=== PATIENT | female | born 1975 | race Caucasian/White ===

== ENCOUNTER 2021-10-07 13:14 | Outpatient (CLI) | payer OTHER, SELFPAY ==
--- NOTE | 2021-10-07 13:20 | CRLHL7_ITS ---
For Patients: As a result of the Century Cures Act, medical imaging exams and procedure reports are released immediately into your electronic medical record. You may view this report before your referring provider. If you have questions, please contact your health care provider. BILATERAL SCREENING MAMMOGRAM WITH COMPUTER-AIDED DETECTION AND TOMOSYNTHESIS TECHNIQUE: CC and MLO views were obtained. These mammographic images have been obtained using full-field digital technique. These mammographic images were interpreted with the benefit of computer-aided detection. Breast Tomosynthesis was used in this interpretation. COMPARISON FILM: 09/24/20, 09/11/19, 08/20/18 FINDINGS: There are scattered areas of fibroglandular density IMPRESSION: There is no radiographic evidence for malignancy. ASSESSMENT: BI-RADS Category 1: Negative RECOMMENDATION: Routine screening mammogram in 1 year. A lay language report of this examination will be provided to the patient. Austin Cabrera M.D. Diagnostic/Musculoskeletal Radiologist [email or web address] Transcribed: 10:48 p.m. PT/Dictated by: Austin Cabrera MD @ 10/10/2021 10:37:00 AM (Electronically Signed)
== END 2021-10-07 13:15 | disposition home or self-care (01) ==
LOC: MAMMO 13:14
PROVIDERS: Visit Provider Physician Assistant
DX: Z12.31 Encounter for screening mammogram for malignant neoplasm of breast (principal)
CPT/HCPCS: 77063; 77067

== ENCOUNTER 2022-01-02 07:41 | Day surgery (SDC) | payer OTHER, SELFPAY ==
--- NOTE | 2022-01-02 07:51 | SUR.PREOP ---
HOME COVID ANTIGEN TEST NEGATIVE
[2022-01-02 07:57] VITALS: BP 112/73; PULSE 82; RESP 16; TEMP 37; O2SAT 98
[2022-01-02 08:04] VITALS: BMI 25.2
[2022-01-02] MEDS: SCOPOLAMINE 1 MG/3 DAY PATCH 1 PATCH TRANSDERMA (08:11)
[2022-01-02] MEDS: SODIUM CHLORIDE 0.9 % (FLUSH) 10 ML SYRINGE IVF (08:25)
[2022-01-02] MEDS: LACTATED RINGERS 1000 ML 1,000 ML 100 ML IV (08:25)
--- NOTE | 2022-01-02 09:00 | CRLHL7_ITS ---
For Patients: As a result of the Century Cures Act, medical imaging exams and procedure reports are released immediately into your electronic medical record. You may view this report before your referring provider. If you have questions, please contact your health care provider. Indication: Right Lapidus Bunionectomy, Jair Osteotomy 2nd Metatarsal Technique: Two fluoroscopic images of the right foot. Fluoroscopic time 47.4 seconds. IMPRESSION: Fluoroscopic guidance for 1st tarsal metatarsal fusion and bunionectomy along with great toe proximal phalangeal osteotomy. Postop changes to 2nd metatarsal head. Dictated by Andrew Ling MD @ 01/02/2022 3:53:14 PM (Electronically Signed)
[2022-01-02] MEDS: CEFAZOLIN 1 GM inj IVP (09:45)
[2022-01-02] MEDS: BUPIVACAINE 0.5% 30 ML INJECTION (09:48)
[2022-01-02 13:04] VITALS: BP 99/62; PULSE 53; RESP 16; TEMP 36.3; O2SAT 100
--- NOTE | 2022-01-02 13:08 | W.ANESCHARGE ---
Anesthesia Charges Start Date/Time Anesthesia Start Date: 01/02/22 Anesthesia Start Time: 09:43 Stop Date/Time Anesthesia Stop Date: 01/02/22 Anesthesia Stop Time: 13:07 Summary Emergency: No
--- NOTE | 2022-01-02 13:19 | W.ANESCHARGE ---
Anesthesia Charges Start Date/Time Anesthesia Start Date: 01/02/22 Anesthesia Start Time: 09:43 Stop Date/Time Anesthesia Stop Date: 01/02/22 Anesthesia Stop Time: 13:07 Summary Emergency: No
[2022-01-02 13:53] VITALS: BP 114/50; PULSE 52; RESP 16; O2SAT 100
[2022-01-02] MEDS: OxyCODONE/APAP 5-325 TABLET PO (13:58)
[2022-01-02 14:23] VITALS: BP 103/67; PULSE 53; RESP 16; O2SAT 99
--- NOTE | 2022-01-02 16:53 | P.GSOP_ITS ---
Operative Note Date of procedure: 01/02/22 Type of Procedure: 1. Lapidus bunionectomy right 2. Ted phalangeal osteotomy right 3. Jair osteotomy 2nd metatarsal right Procedure Description: Preoperative diagnosis: Hallux valgus with bunion right, metatarsalgia 2nd right Postoperative diagnosis: Hallux valgus with bunion right, metatarsalgia 2nd right Procedure: Lapidus bunionectomy right, Ted phalangeal osteotomy right, Jair osteotomy 2nd metatarsal right After discussing the risks and benefits of the procedure, the patient signed informed consent.? The operative site was marked and the patient was brought to the operating room and placed on the operating table in supine position.? Care was taken to pad the patient's pressure points.?? The patient was then given sedation by anesthesia and I injected 30 mL of 0.5% Marcaine plain into the right foot.?? The operative site was then prepped and draped in the usual sterile fashion.? A time-out was then performed. The right foot was exsanguinated and the ankle tourniquet inflated to 250 mm Hg. Linear incisions made midline on the medial 1st metatarsal head. Incision was carried down through skin subcutaneous tissues. Blunt dissection was carried down to the joint capsule and a linear capsular incision was made. Capsular tissues reflected away from the 1st metatarsal head. A linear incisions made over the 2nd metatarsophalangeal joint extended proximally. Incision was carefully deepened into the 1st intermetatarsal space and a standard lateral release performed. The dorsal fibular sesamoidal ligaments the adductor tendon released. Linear incisions made over the dorsal medial aspect of the 1st metatarsal cuneiform joint. Incision was carried down through skin subcutaneous tissues. Neurovascular structures retracted medially and the extensor tendon retracted laterally. Transverse incision was made through the joint capsule. A joint distractor applied. The joint was distracted and the cartilaginous surface of the 1st metatarsal base and medial cuneiform were removed with a osteotome and curette. Using a sagittal saw additional bone was removed from the dorsal lateral 1st metatarsal base to help with her rotation in the frontal plane. Sagittal saw was then used to reciprocal plane the lateral aspect of the fusion site until correct fit was obtained with good [id number] apposition and excellent correction of the deformity. Wound was irrigated with normal sterile saline. Opposing joint fusion surfaces were fenestrated with the joint prep drill and an osteotome. Guide pin was placed the 1st metatarsal head and the LapiFuse jig applied. 1st metatarsal was corrected in all 3 planes. C-arm confirmed excellent position. Guide pin was placed from 1st metatarsal base across the medial cuneiform into the middle cuneiform. C-arm confirmed position. 4.0 cannulated screw was then inserted and excellent compression noted across the fusion site. Position we checked and found to be optimal. Dorsal medial plate was then applied and 3.0 mm locking screws were placed 2 proximal and 2 distal. First metatarsal was stable. Using a sagittal saw and rotary bur 1st metatarsal head was remodeled. Wound was thoroughly irrigated normal sterile saline. ? Hallux still angled at the IPJ. Ted osteotomy was then performed. A linear incision was made over the midshaft of the proximal phalanx medially. Blunt dissection down to periosteum. Periosteum reflected dorsally and plantarly protecting the extensor and flexor tendons. A sagittal saw was used to resect a medially based wedge of bone from the phalanx preserving the lateral bony cortex. It was feathered until the osteotomy was easily closed down. An 8 mm staple was then placed medially across the osteotomy. X-rays confirmed excellent position. The previous incision over the 2nd MPJ was deepened down to the extensor tendon. Extensor tendon was reflected laterally. A linear capsular incision was made and the 2nd metatarsal head exposed. Sagittal saw was used to create a Jair osteotomy and the capital fragment transposed proximal 2 mm. It was then fixated with a 12 mm twist off screw x1. Wound was thoroughly irrigated normal sterile saline. The joint capsule was closed with 4-0 Vicryl. Subcutaneous tissues reapproximated with 4-0 Monocryl and skin closed with 4-0 Prolene. Tourniquet was released at this point and all bleeding vessels cauterized. The distal Ted incision was closed with 4-0 Monocryl and 4-0 Prolene. The proximal wound the deep fascia was closed with 4-0 Vicryl. The subcutaneous tissues reapproximated 4-0 Monocryl the skin closed with 4-0 Prolene. At the incision over the 1st metatarsal head the redundant capsular tissue was excised and the joint capsule repaired with 3-0 Vicryl. The hallux was maintained in rectus position. Subcutaneous tissues reapproximated 4-0 Monocryl and skin closed with 4-0 Prolene. Sterile dressings were then applied. Well-padded CAM boot placed. The patient was then woken and transported to the recovery area in stable condition. ? The patient tolerated the procedure well. Written and verbal postop instructions given. She will be discharged per Anesthesia. She is given oxycodone for pain. She is given Zofran for nausea. She will utilize crutches or knee walker. She will follow-up in 2 days. Aspirin therapy starting tomorrow. Findings: Complications: None apparent Implants: Treece LapiFuse 1st metatarsal cuneiform joint plate 0? x1, 3.0 cortical locking screw times 4, 4.0 cannulated screw x1. Twist off screw x1. Anesthesia: MAC and local Surgeon: Monroe Espinosa DPM Estimated blood loss (mL): 10 Condition: stable Disposition: same day
== END 2022-01-02 14:45 | disposition home or self-care (01) ==
PROVIDERS: PCP Physician Assistant; Visit Provider Podiatrist
PROC: (CPT 28292; principal; 2022-01-02 09:00)
PROC: (CPT 28297; 2022-01-02 09:00)
DX: M20.11 Hallux valgus (acquired), right foot (principal); M21.611 Bunion of right foot; M77.41 Metatarsalgia, right foot
CPT/HCPCS: 28297; 28310; 28308; 01462; 01480; 73620; 97116; 97161; A9270; C1713; J0690; J1100; J1885; J2250; J2405; J2704; J3010; J3490; J7120

== ENCOUNTER 2022-10-12 08:04 | Outpatient (CLI) | payer OTHER, SELFPAY | END 2022-10-12 08:05 | disposition home or self-care (01) | PROVIDERS: PCP Physician Assistant; Visit Provider Nurse Practitioner Family | DX: Z00.00 Encounter for general adult medical examination without abnormal findings (principal); R00.2 Palpitations; Z13.1 Encounter for screening for diabetes mellitus; Z13.0 Encounter for screening for diseases of the blood and blood-forming organs and certain disorders involving the immune mechanism; Z13.6 Encounter for screening for cardiovascular disorders | CPT/HCPCS: 80061; 82947; 84443; 85025 ==

== ENCOUNTER 2022-10-12 15:21 | Outpatient (CLI) | payer OTHER, SELFPAY ==
--- NOTE | 2022-10-12 15:40 | CRLHL7_ITS ---
For Patients: As a result of the Cures Act, medical imaging exams and procedure reports are released immediately into your electronic medical record. You may view this report before your referring provider. If you have questions, please contact your health care provider. BILATERAL SCREENING MAMMOGRAM WITH COMPUTER-AIDED DETECTION AND TOMOSYNTHESIS TECHNIQUE: CC and MLO views were obtained. These mammographic images have been obtained using full-field digital technique. These mammographic images were interpreted with the benefit of computer-aided detection. Breast Tomosynthesis was used in this interpretation. COMPARISON FILM: 10/07/21, 09/24/20, 09/11/19. FINDINGS: There are scattered areas of fibroglandular density IMPRESSION: There is no radiographic evidence for malignancy. ASSESSMENT: BI-RADS Category 2: Benign RECOMMENDATION: Routine screening mammogram in 1 year. A lay language report of this examination will be provided to the patient. Andrew Ling M.D. Diagnostic Radiologist [email or web address] / be/Dictated by: Andrew Ling MD @ 10/13/2022 9:30:00 AM (Electronically Signed)
== END 2022-10-12 15:22 | disposition home or self-care (01) ==
LOC: MAMMO 15:21
PROVIDERS: PCP Nurse Practitioner Family; Visit Provider Nurse Practitioner Family
DX: Z12.31 Encounter for screening mammogram for malignant neoplasm of breast (principal)
CPT/HCPCS: 77063; 77067

== ENCOUNTER 2023-02-18 13:27 | Emergency (ER) | payer OTHER, SELFPAY ==
[2023-02-18 13:33] VITALS: BP 125/79; PULSE 76; RESP 18; TEMP 36.7; O2SAT 100; BMI 22.0
--- NOTE | 2023-02-18 14:17 | ED.GENADULT ---
HPI - General Adult General Chief complaint: Laceration/Wound Stated complaint: Laceration L willis Time Seen by Provider: 02/18/23 13:42 History of Present Illness HPI narrative: Patient is a 47 year white female who is up-to-date on tetanus who presents with a injury to her left anterior willis she has an aero shaped flap about 2 cm x 4 cm long in the distal anterior willis good amount of bleeding notes stopped. She has reporting that she hit this on a wooden stool so there was no foreign material likely in the wound. She is able to walk without difficulty presents for evaluation for the laceration. Related Data Home Medications Medication Instructions Recorded Confirmed multivitamin 1 tab PO QDAY 12/14/21 10/12/22 Previous Rx's Medication Instructions Recorded azithromycin 250 mg tablet See Rx Instructions PO .COMPLEX #6 10/27/22 (Zithromax Z-Vargas) tabs lorazepam 1 mg tablet 1 mg PO TID PRN anxiety #60 tabs 01/16/23 cephalexin 500 mg capsule 500 mg PO QID #20 caps 02/18/23 Allergies Allergy/AdvReac Type Severity Reaction Status Date / Time acetaminophen Allergy Intermediate stomach Verified 02/18/23 13:37 [From Panlor burning (hydrocodone-acetamin)] hydrocodone Allergy Intermediate stomach Verified 02/18/23 13:37 [From Panlor burning (hydrocodone-acetamin)] anesthesia Allergy Intermediate vomits Uncoded 10/12/22 07:46 Estrogens AdvReac pulmonary Uncoded 10/17/22 13:51 embolism Review of Systems Status of ROS: Reports: 6 or more systems reviewed and unremarkable except as noted in History and below [facility] Medical History History of tachycardia ?Z87.898 - Personal history of other specified conditions (ICD-10) ASCUS of cervix with negative high risk HPV ?R87.610 - Atypical squamous cells of undetermined significance on cytologic smear of cervix (ASC-US) (ICD-10) Bilateral bunions ?M21.611 - Bunion of right foot (ICD-10) ?M21.612 - Bunion of left foot (ICD-10) Hx pulmonary embolism ?Z86.711 - Personal history of pulmonary embolism (ICD-10) Surgical History History of bunionectomy ?Z98.890 - Other specified postprocedural states (ICD-10) History of endometrial ablation ?Z98.890 - Other specified postprocedural states (ICD-10) History of laparoscopic cholecystectomy ?Z90.49 - Acquired absence of other specified parts of digestive tract (ICD-10) Family History Father Coronary artery disease Prostate cancer Mother Cardiac arrhythmia Aunt Breast cancer Uncle Esophageal cancer Paternal Grandfather Parkinson's disease Paternal Grandmother Diabetes Social History Narrative: , 3 kids, [facility] [place], non-smoker, social EtOH What is your current living situation?: I presently have a place to live Problems where you live: no known problems In the past 12 months, utilities in danger of being shut off: no In past 12 months, lack of transportation kept you from medical appts, meetings, work, or getting things needed for daily living: no In the past 12 mos, have been you worried that your food would run out before you had money to buy more?: never true Smoking Status: Never smoker Do you use any of these nicotine containing products: None How often do you have a drink containing alcohol: 2-4 times a month Alcohol type: beer and wine How many standard drinks containing alcohol do you have on a typical day: 1 or 2 How often do you have six or more drinks on one occasion: Never AUDIT-C Alcohol total score: 2 Non-prescribed substance use: denies use Caffeine: Yes (COFFEE DAILY) How often does anyone, including family, friends and others, physically hurt you: never How often does anyone, including family, friends and others, insult or talk down to you: never How often does anyone, including family, friends and others, threaten you with harm: never How often does anyone, including family, friends and others, scream or curse at you: never Little interest or pleasure in doing things: not at all Feeling down, depressed, or hopeless: not at all Are you using contraception or practicing any form of control: No Exam Narrative: Exam Narrative: Objective vital signs unremarkable in general patient in no apparent distress The patient has a aero shaped laceration with the tip pointing distally in her left anterior willis at the middle and distal 3rd junction. There is a flap in it is somewhat deep down to fascial tissue. There is no arterial bleeding. Distal CMS intact left lower extremity. No foreign body palpated or reviewed with some exam of the wound. Const: Vital Signs, click to edit/add: Vital Signs - 24 hr 02/18/23 13:33 Temperature 98.1 F Pulse Rate [Pulse Oximeter] 76 Respiratory Rate 18 Blood Pressure [Ri ght Upper Arm] 125/79 Pulse Oximetry 100 Oxygen Delivery Me thod Room Air Course Vital Signs Vital signs: Initial Vital Signs Temperature 98.1 F 02/18/23 13:33 Temperature Source Tympanic 02/18/23 13:33 Pulse Rate 76 02/18/23 13:33 Pulse Rhythm Regular 02/18/23 13:33 Respiratory Rate 18 02/18/23 13:33 Blood Pressure 125/79 02/18/23 13:33 Blood Pressure Mean 94 02/18/23 13:33 Blood Pressure Position Sitting 02/18/23 13:33 Pulse Oximetry 100 02/18/23 13:33 Oxygen Delivery Method Room Air 02/18/23 13:33 Vital Signs Temperature 98.1 F 02/18/23 13:33 Pulse Rate 76 02/18/23 13:33 Respiratory Rate 18 02/18/23 13:33 Blood Pressure 125/79 02/18/23 13:33 Pulse Oximetry 100 02/18/23 13:33 Oxygen Delivery Method Room Air 02/18/23 13:33 Temperature 98.1 F 02/18/23 13:33 Pulse Rate 76 02/18/23 13:33 Respiratory Rate 18 02/18/23 13:33 Blood Pressure 125/79 02/18/23 13:33 Pulse Oximetry 100 02/18/23 13:33 Oxygen Delivery Method Room Air 02/18/23 13:33 Medications Administered Medications: Discontinued Medications Generic Name Dose Route Start Last Admin Trade Name Freq PRN Reason Stop Dose Admin Cephalexin HCl 500 mg 02/18/23 14:13 02/18/23 14:24 Cephalexin 500 Mg Capsule PO 02/18/23 14:14 500 mg ONCE ONE Administration Diphtheria/Tetanus/Acell Pertussis 0.5 ml 02/18/23 14:22 02/18/23 14:25 Tetanus/Diphth/Pertussis 0.5 Ml Syringe IM 02/18/23 14:23 0.5 ml .ONCE ONE Administration Medical Decision Making MDM Narrative Medical decision making narrative: Procedure: After injection with 1% xylocaine with epinephrine for anesthesia which the patient tolerated well 3-0 simple opted Ethilon sutures were placed in the wound to close the flap. One side of the flap was about 2 cm the other side was about 4. The wound came together well good skin edge approximation, good hemostasis. Patient tolerated this well. Wound was irrigated with cleaning solution prior to repair. Suture removal will be recommended in 7 days keep covered for 24 hours then may soak off the dressing and cover with a bandage and bacitracin if she wishes. So watch for redness infection. Will put her on Keflex 4 times a day for 5 days for infection prevention. Your up-to-date on her tetanus by your report, but the patient is nearing her in expiration of her tetanus protection. I think at this point after discussed with her will give her a updated Tdap.. Return if problems or concerns. Discharge Plan Discharge Clinical Impression: Laceration Patient Disposition: Home, Self-Care Condition: Improved Additional Instructions: Suture removal in about 1 week, light activity for 48 hours, keep covered for 24 hours then may simply soak off the dressing and cover with a bandage. You may use topical bacitracin if you wish. Would have you on antibiotic for about 5 days to prevent infection. Watch for redness or infection. We updated your tetanus shot Activity Level: Light activity Discharge Diet: Regular Prescriptions: New cephalexin 500 mg capsule 500 mg PO QID Qty: 20 0RF No Action multivitamin Tablet 1 tab PO QDAY azithromycin [Zithromax Z-Vargas] 250 mg tablet See Rx Instructions PO .COMPLEX Qty: 6 0RF Rx Instructions: For 250 mg dose pack: take 500 mg today (day 1), then 250 mg for 4 days (days 2-5) PO lorazepam 1 mg tablet 1 mg PO TID PRN (Reason: anxiety) Qty: 60 0RF Follow Up/Referrals: Rebeca Powers, TECHNICAL OPERATIONS MANAGER, RADIO INTERFERENCE SUPERVISOR [Primary Care Provider] - Stand Alone Forms: [facility] Info Instructions
[2023-02-18] MEDS: cephALEXin 500 MG CAPSULE PO (14:24)
[2023-02-18] MEDS: TETANUS/DIPHTH/PERTUSSIS 0.5 ML SYRINGE IM (14:25)
== END 2023-02-18 14:36 | disposition home or self-care (01) ==
LOC: ED 14:35
PROVIDERS: Emergency Provider Family Medicine; PCP Nurse Practitioner Family
DX: S81.812A Laceration without foreign body, left lower leg, initial encounter (principal); W26.9XXA Contact with unspecified sharp object(s), initial encounter
CPT/HCPCS: 12002; 90471; 90715; 96372; 99283; A9270

== ENCOUNTER 2023-10-17 07:30 | Outpatient (CLI) | payer OTHER, SELFPAY | END 2023-10-17 07:31 | disposition home or self-care (01) | LOC: NFLDREF 10-21 11:15 | PROVIDERS: PCP Nurse Practitioner Family; Referring Provider Nurse Practitioner Family; Visit Provider Nurse Practitioner Family | DX: E78.5 Hyperlipidemia, unspecified (principal); Z13.0 Encounter for screening for diseases of the blood and blood-forming organs and certain disorders involving the immune mechanism; Z13.228 Encounter for screening for other metabolic disorders | CPT/HCPCS: 80053; 80061; 85025 ==

== ENCOUNTER 2023-10-19 08:34 | Outpatient (CLI) | payer OTHER, SELFPAY | END 2023-10-19 08:35 | disposition home or self-care (01) | PROVIDERS: PCP Nurse Practitioner Family; Visit Provider Nurse Practitioner Family | DX: Z12.4 Encounter for screening for malignant neoplasm of cervix (principal); Z83.719 Family history of colon polyps, unspecified | CPT/HCPCS: 87624 ==

== ENCOUNTER 2023-10-19 10:05 | Outpatient (CLI) | payer OTHER, SELFPAY ==
--- NOTE | 2023-10-19 10:15 | CRLHL7_ITS ---
For Patients: As a result of the Century Cures Act, medical imaging exams and procedure reports are released immediately into your electronic medical record. You may view this report before your referring provider. If you have questions, please contact your health care provider. BILATERAL SCREENING MAMMOGRAM WITH COMPUTER-AIDED DETECTION AND TOMOSYNTHESIS TECHNIQUE: CC and MLO views were obtained. These mammographic images have been obtained using full-field digital technique. These mammographic images were interpreted with the benefit of computer-aided detection. Breast Tomosynthesis was used in this interpretation. COMPARISON FILM: 10/12/22, 10/07/21, 09/24/20. FINDINGS: There are scattered areas of fibroglandular density. IMPRESSION: There is no radiographic evidence for malignancy. ASSESSMENT: BI-RADS Category 2: Benign RECOMMENDATION: Routine screening mammogram in 1 year. A lay language report of this examination will be provided to the patient. Adnrew Ling M.D. Diagnostic Radiologist [email or web address] SP/Dictated by: Andrew Ling MD @ 10/19/2023 10:39:00 AM (Electronically Signed)
== END 2023-10-19 10:06 | disposition home or self-care (01) ==
LOC: MAMMO 10:05
PROVIDERS: PCP Nurse Practitioner Family; Visit Provider Nurse Practitioner Family
DX: Z12.31 Encounter for screening mammogram for malignant neoplasm of breast (principal)
CPT/HCPCS: 77063; 77067

== ENCOUNTER 2023-10-22 07:04 | Outpatient (CLI) | payer OTHER, SELFPAY ==
--- NOTE | 2023-10-22 07:15 | CRLHL7_ITS ---
For Patients: As a result of the Cures Act, medical imaging exams and procedure reports are released immediately into your electronic medical record. You may view this report before your referring provider. If you have questions, please contact your health care provider. INDICATION: Abnormal LFTs. COMPARISON: None available. TECHNIQUE: Right upper quadrant grayscale and limited color Doppler ultrasound. FINDINGS: Liver: Mildly enlarged. Mild diffusely increased hepatic parenchymal echotexture consistent with hepatic steatosis. Homogeneous echotexture. No suspicious focal lesion. No intrahepatic biliary ductal dilatation. Smooth contour. Normal hepatopedal portal venous blood flow. Gallbladder: Absent. CBD: 6mm Pancreas: Normal where visualized. The pancreas is partially obscured and therefore incompletely evaluated. Right Kidney: Normal echotexture. No hydronephrosis. No convincing sonographic evidence of nephrolithiasis. Midline Vasculature: Unremarkable where visualized. Peritoneal Cavity: No significant ascites. Additional Findings: None. IMPRESSION: Mild hepatic steatosis. Mild hepatomegaly. Cholecystectomy. Dictated by Roby Calzada MD @ 10/22/2023 7:52:53 AM (Electronically Signed)
== END 2023-10-22 07:05 | disposition home or self-care (01) ==
PROVIDERS: PCP Nurse Practitioner Family; Visit Provider Nurse Practitioner Family
DX: R74.8 Abnormal levels of other serum enzymes (principal); K76.0 Fatty (change of) liver, not elsewhere classified
CPT/HCPCS: 76705

== ENCOUNTER 2023-10-26 08:03 | Outpatient (CLI) | payer OTHER, SELFPAY | END 2023-10-26 08:04 | disposition home or self-care (01) | PROVIDERS: PCP Nurse Practitioner Family; Visit Provider Family Medicine | DX: R74.8 Abnormal levels of other serum enzymes (principal); Z11.59 Encounter for screening for other viral diseases | CPT/HCPCS: 80061; 80076; 86803 ==

== ENCOUNTER 2024-10-24 08:54 | Outpatient (CLI) | payer OTHER, SELFPAY | END 2024-10-24 08:55 | disposition home or self-care (01) | PROVIDERS: PCP Nurse Practitioner Family; Visit Provider Nurse Practitioner Family | DX: Z00.00 Encounter for general adult medical examination without abnormal findings (principal); R74.8 Abnormal levels of other serum enzymes; E78.5 Hyperlipidemia, unspecified; Z13.0 Encounter for screening for diseases of the blood and blood-forming organs and certain disorders involving the immune mechanism; Z13.6 Encounter for screening for cardiovascular disorders; Z13.228 Encounter for screening for other metabolic disorders | CPT/HCPCS: 80053; 80061; 85025 ==

== ENCOUNTER 2024-10-24 09:49 | Outpatient (CLI) | payer OTHER, SELFPAY ==
--- NOTE | 2024-10-24 10:15 | CRLHL7_ITS ---
For Patients: As a result of the Century Cures Act, medical imaging exams and procedure reports are released immediately into your electronic medical record. You may view this report before your referring provider. If you have questions, please contact your health care provider. INDICATION: BILATERAL SCREENING MAMMOGRAM, ASYMPTOMATIC 49 Y/O FEMALE COMPARISON: 10/19/2023, 10/12/2022, 10/07/2021 TECHNIQUE: Digital mammogram in CC and MLO projections including computer-aided detection (CAD) and tomosynthesis. BREAST COMPOSITION: There are scattered areas of fibroglandular density. FINDINGS: No suspicious findings. ASSESSMENT: BI-RADS 1 Negative RECOMMENDATION: Annual screening mammogram. A lay language report of this examination will be provided to the patient. Dictated by: Andrew Ling MD @ 10/27/2024 11:26:32 (Electronically Signed)
== END 2024-10-24 09:50 | disposition home or self-care (01) ==
LOC: MAMMO 09:49
PROVIDERS: PCP Nurse Practitioner Family; Visit Provider Nurse Practitioner Family
DX: Z12.31 Encounter for screening mammogram for malignant neoplasm of breast (principal)
CPT/HCPCS: 77063; 77067